=== PATIENT | male | born 1985 | race Caucasian/White ===

== ENCOUNTER 2017-04-15 06:42 | Emergency (ER) | payer OTHER ==
[~2017-04-15] VITALS: Ht 121.9 cm; Wt 31.0 kg
[2017-04-15] MEDS ORDERED: LEVE250T55 PO (06:53)
[2017-04-15] MEDS ORDERED: FERR-89 PO (06:53)
[2017-04-15] MEDS ORDERED: FURO20 PO (06:53)
[2017-04-15] MEDS ORDERED: MELA1TAB15 PO (06:53)
[2017-04-15] MEDS ORDERED: PERTUSS(ACELL),DIPH,TET VAC/PF 0.5 ML VIAL IM ONE (07:00)
[2017-04-15 11:00] VITALS: BP 132/74
== END 2017-04-15 12:54 | disposition home or self-care (01) ==
LOC: EMS 06:44
DX: S01.81XA Laceration without foreign body of other part of head, initial encounter (principal); W19.XXXA Unspecified fall, initial encounter; Y93.89 Activity, other specified; Y92.89 Other specified places as the place of occurrence of the external cause; Y99.8 Other external cause status
CPT/HCPCS: 12001; 12002; 70450; 90471; 90715; 99284